=== PATIENT | male | born 1995 | race Caucasian/White ===

== ENCOUNTER 2020-03-29 02:25 | Emergency (ER) | payer SELFPAY ==
[~2020-03-29] VITALS: Ht 182.9 cm; Wt 123.4 kg
[2020-03-29 03:04] VITALS: BP 143/92; Ht 182.9 cm; Wt 123.4 kg
== END 2020-03-29 04:22 | disposition left against medical advice (07) ==
LOC: ED 02:25
DX: Z53.21 Procedure and treatment not carried out due to patient leaving prior to being seen by health care provider (principal)

== ENCOUNTER 2020-04-21 01:38 | Emergency (ER) | payer SELFPAY ==
[~2020-04-21] VITALS: Ht 182.9 cm; Wt 122.0 kg
[2020-04-21 01:55] VITALS: Ht 182.9 cm; Wt 122.0 kg
[2020-04-21 02:30] LABS: microscopic required? NO
[2020-04-21 02:45] LABS: BASOPHIL % 0.4 % (0.2-1.5); PLATELET COUNT 242 x10^3mcL (152-348); RED CELL DISTRIBUTION WIDTH 13.5 % (12.1-16.2)
[2020-04-21 02:46] LABS: UA SPECIFIC GRAVITY 1.015 (1.005-1.035); urine erythrocyte NEGATIVE (NEGATIVE)
[2020-04-21 02:56] LABS: CALCIUM 9.7 mg/dL (8.5-10.1); CARBON DIOXIDE 28.5 mmol/L (21-32); CHLORIDE SERUM 97 mmol/L (98-107); CREATININE SERUM 0.9 mg/dL (0.7-1.3); GFR1 > 60 mL/min; GLUCOSE SERUM 314 mg/dL (74-106); POTASSIUM SERUM 4.4 mmol/L (3.5-5.1); SODIUM SERUM 136 mmol/L (136-145)
[2020-04-21 03:01] LABS: ALBUMIN 4.2 g/dL (3.4-5.0); ALKALINE PHOSPHATASE 91 U/L (46-116); ALT/SGPT 210 U/L (16-63); AST/SGOT 48 U/L (15-37); BILIRUBIN TOTAL 0.46 mg/dL (0.20-1.00)
[2020-04-21 04:26] VITALS: BP 155/99
== END 2020-04-21 04:26 | disposition home or self-care (01) ==
LOC: ED 01:38
PROVIDERS: Emergency Medicine
DX: E11.9 Type 2 diabetes mellitus without complications (principal); I10 Essential (primary) hypertension; N48.1 Balanitis
CPT/HCPCS: 82962; J7030